=== PATIENT | female | born 1965 | race Caucasian/White ===

== ENCOUNTER 2016-06-18 11:04 | Emergency (ER) | payer OTHER ==
[~2016-06-18] VITALS: Ht 167.6 cm; Wt 65.8 kg
[~2016-06-18 11:04] MED LIST: ALPR0.2583 PO; BUPR100T13 PO; DULO60CA41 PO
[2016-06-18 11:19] VITALS: BP_SYST 142
--- NOTE | 2016-06-18 11:19 | NUR ---
Placed in room 01 . Placed on latent print examiner, blood pressure machine and pulse oximeter. To gown for exam. Side rails up. Report given to Cynthia.
--- NOTE | 2016-06-18 11:22 | NUR ---
ER at bedside examining patient.
--- NOTE | 2016-06-18 11:25 | NUR ---
PT STATES THAT SHE HAS "EPISODES" WHERE SHE GETS CHILLS AND BECOMES DISORIENTED. PT IS ALERT AND ORIENTED X3.
[2016-06-18 11:40] LABS: BASOPHILS # (AUTO) 0.1 K/uL (0.0-0.2); EOSINOPHILS # (AUTO) 0.1 K/uL (0.0-0.4); EOSINOPHILS % (AUTO) 1.1 % (0.0-4.0); HEMATOCRIT 31.9 % (36-48); HEMOGLOBIN 9.7 g/dL (12.0-16.0); LYMPHOCYTES % (AUTO) 25.5 % (20.5-51.5); MEAN CORPUSCULAR HEMOGLOBIN 25 pg (27-31); MEAN CORPUSCULAR HGB CONC 30 % (32-36); MEAN CORPUSCULAR VOLUME 83 fL (79.0-98.0); MONOCYTES # (AUTO) 0.6 K/uL (0.0-1.0); NEUTROPHILS # (AUTO) 5.1 K/uL (1.8-7.7); NEUTROPHILS % (AUTO) 65.4 % (40.0-70.0); PLATELET COUNT (AUTO) 323 K/uL (130-430); RED BLOOD CELL COUNT(AUTO) 3.82 MIL/uL (4.2-6.2); RED CELL DISTRIBUTION WIDTH 18.4 % (9.0-15.0); WHITE BLOOD COUNT (AUTO) 7.9 K/uL (4.8-10.8)
[2016-06-18 11:48] LABS: CALCIUM 8.6 mg/dL (8.4-11.0); CREATININE 0.89 mg/dL (0.55-1.30); POTASSIUM 3.8 mmol/L (3.5-5.1)
[2016-06-18 11:52] LABS: ALBUMIN 3.6 g/dL (3.4-4.8); PROTHROMBIN TIME 10.8 SECS (9.5-12.5); TOTAL BILIRUBIN 0.2 mg/dL (0.0-1.0); TOTAL PROTEIN, SERUM 6.8 g/dL (6.4-8.3)
--- NOTE | 2016-06-18 12:40 | NUR ---
Pt moved to Room 3
[2016-06-18 13:15] VITALS: BP_SYST 131
--- NOTE | 2016-06-18 13:15 | NUR ---
Patient given written and verbal discharge instructions and verbalizes understanding. ER MD DR. MCDONALD discussed with patient the results and treatment provided. Patient in stable condition. ID arm band removed. NO Rx given. Patient educated on pain management and to follow up with PMD. Pain Scale 0/10 Opportunity for questions provided and answered.
[2016-06-18 13:40] LABS: BARBITURATE, URINE NEGATIVE (NEG <=200); BENZODIAZEPINE, URINE NEGATIVE (NEG <=150); CANNABINOID, URINE NEGATIVE (NEG <=50); COCAINE, URINE NEGATIVE (NEG <=150); METHAMPHETAMINES SCREEN,URINE NEGATIVE (NEG <=500); OPIATE, URINE NEGATIVE (NEG <=100); PHENCYCLIDINE SCREEN,URINE NEGATIVE (NEG <=25); UR TRICYCLIC ANTIDEPRESSANTS NEGATIVE (NEG <=300); URINE AMPHETAMINE NEGATIVE (NEG <=500); URINE METHADONE NEGATIVE (NEG <=200); URINE OXYCODONE SCREEN NEGATIVE (NEG <=100); URINE PROPOXYPHENE SCREEN NEGATIVE (NEG <=300)
== END 2016-06-18 13:15 | disposition home or self-care (01) ==
LOC: SED 11:04
DX: G40.409 Other generalized epilepsy and epileptic syndromes, not intractable, without status epilepticus (principal)
CPT/HCPCS: 36415; 70450-TC; 71010; 80053; 80307; 82550-TC; 83880; 84484; 84703; 85025; 85610-TC; 85730-TC; 93005; 99285

== ENCOUNTER 2016-10-27 12:15 | Day surgery (SDC) | payer OTHER ==
[~2016-10-27] VITALS: Ht 162.6 cm; Wt 59.0 kg
[2016-10-27] MEDS ORDERED: POLYMYXIN 500,000/BACIT.10,000 UNITS in NS IRR 1 L IR ONE (15:17)
[2016-10-27] MEDS ORDERED: LR 1,000 ML IV SCH (15:20)
[2016-10-27] MEDS ORDERED: HYDROmorphone 1 MG INJ. 1 MG/ML AMPUL IVP PRN (15:30)
[2016-10-27] MEDS ORDERED: HYDROmorphone 2 MG/ML VIAL IVP PRN ×2 (15:30)
[2016-10-27] MEDS ORDERED: MEPERIDINE HCL/PF 25 MG/ML DISP.SYRIN IVP PRN (15:30)
[2016-10-27] MEDS ORDERED: D5LR 1,000 ML IV SCH (18:11)
[2016-10-27] MEDS ORDERED: ACETAMINOPHEN 325 MG TABLET PO PRN (18:15)
[2016-10-27] MEDS ORDERED: MORPHINE 2 MG/ML INJ. SYRINGE IVP PRN (18:15)
[2016-10-27] MEDS ORDERED: HYDROcodone/ACETAMIN 5-325 MG TAB (NORCO/ VICODIN) PO PRN (18:15)
[2016-10-27] MEDS ORDERED: DIPHENHYDRAMINE HCL 25 MG CAPSULE PO PRN (18:15)
[2016-10-27 18:27] VITALS: BP_SYST 126
[2016-10-27] MEDS ORDERED: MEPERIDINE HCL/PF 25 MG/ML DISP.SYRIN ONE (18:28)
--- NOTE | 2016-10-27 18:45 | NUR ---
OBSERVATION PATIENT BROUGHT FROM PACU. PATIENT BEING BROUGHT TO ROOM 123 FOR OBSERVATION OVERNIGHT. VITALS STARTED AND REPORT WILL BE GIVEN TO NIGHT NURSE.
--- NOTE | 2016-10-27 19:48 | NUR ---
OPENING NOTES/ OBSERVATION PATIENT IS A/OX4. NO SIGNS OF DISTRESS. BREATHING IS NON LABORED. VITAL SIGNS ARE STABLE. T=98.2 PF=054/79, HR=82 O2=96% RM, RR=16 P=2. PATIENT STATED THAT HER BOYFRIEND IS COMING TO PICK HER UP. WILL CONTINUE TO MONITOR.
--- NOTE | 2016-10-27 20:10 | NUR ---
PATIENT OFF THE UNIT PATIENT IS A/OX4. NO SIGNS OF DISTRESS. BREATHING IS NON LABORED. VITAL SIGNS ARE STABLE. DRESSING TO THE RIGHT SHOULDER IS CLEAN, DRY, AND INTACT. PATIENT WAS GIVEN DISCHARGE INSTRUCTIONS PER MD ORDERED. PATIENT AND PATIENT BOYFRIEND WERE EDUCATED ON MD DISCHARGE INSTRUCTIONS. PATIENT VERBALIZED UNDERSTANDING. ELISEO GUARDADO WHEELED PATIENT OUT TO PRIVATE AUTOMOBILE. ALL BELONGING STENT HOME WITH PATIENT.
== END 2016-10-27 20:10 | disposition home or self-care (01) ==
LOC: SMU 12:15 → SDS 12:15
PROVIDERS: ATTEND Orthopaedic Surgery
DX: M24.411 Recurrent dislocation, right shoulder (principal); Z88.0 Allergy status to penicillin; F32.9 Major depressive disorder, single episode, unspecified; Z79.899 Other long term (current) drug therapy; M79.7 Fibromyalgia; Z87.891 Personal history of nicotine dependence; Z90.49 Acquired absence of other specified parts of digestive tract
CPT/HCPCS: 23470; 76000; C1713; J2175; J7120; L8699

== ENCOUNTER 2016-12-22 10:03 | Inpatient (IN) | payer OTHER ==
[~2016-12-22] VITALS: Ht 162.6 cm; Wt 61.2 kg
[2016-12-22] MEDS ORDERED: POLYMYXIN 500,000/BACIT.10,000 UNITS in NS IRR 1 L IR ONE (11:52)
[2016-12-22] MEDS ORDERED: PROPOFOL 200MG/ 20ML VIAL (DIPRIVAN) IV ONE (12:25)
[2016-12-22] MEDS ORDERED: MIDAZOLAM HCL 5 MG/5 ML VIAL IVP ONE (12:25)
[2016-12-22] MEDS ORDERED: NS IRRIG SOLN 1000 ML IR ONE (12:25)
[2016-12-22] MEDS ORDERED: CLINDAMYCIN PHOSPHATE 900 mg/50mL D5W IV ONE (12:25)
[2016-12-22] MEDS ORDERED: ROCURONIUM BROMIDE 10 MG/ML (ZEMURON) IV ONE (12:25)
[2016-12-22] MEDS ORDERED: NORMAL SALINE 10 ML VIAL IVP ONE (12:25)
[2016-12-22] MEDS ORDERED: SEVOFLURANE 15 MIN GAS INH ONE (12:25)
[2016-12-22] MEDS ORDERED: VANCOMYCIN HCL 1000 MG/VIAL IV ONE (12:25)
[2016-12-22] MEDS ORDERED: ONDANSETRON HCL 4 MG/2 ML VIAL IVP ONE (12:25)
[2016-12-22] MEDS ORDERED: fentaNYL CITRATE/PF 100 MCG/2 ML AMP IVP ONE (12:25)
[2016-12-22] MEDS ORDERED: LR 1,000 ML IV SCH (13:44)
[2016-12-22] MEDS ORDERED: HYDROmorphone 1 MG INJ. 1 MG/ML AMPUL IVP PRN ×2 (13:45)
[2016-12-22] MEDS ORDERED: METOCLOPRAMIDE HCL 10 MG/2 ML VIAL IVP PRN (13:45)
[2016-12-22] MEDS ORDERED: HYDROmorphone 2 MG/ML VIAL IVP PRN (13:45)
[2016-12-22] MEDS ORDERED: DIPHENHYDRAMINE HCL 25 MG CAPSULE PO PRN (14:15)
[2016-12-22] MEDS ORDERED: VANCOMYCIN HCL 1 GM/NS PREMIX 250 ML IV ONE (14:15)
[2016-12-22] MEDS: D5LR 1,000 ML IV SCH (14:15)
[2016-12-22] MEDS ORDERED: ACETAMINOPHEN 325 MG TABLET PO PRN (14:15)
[2016-12-22] MEDS ORDERED: HYDROmorphone 1 MG INJ. 1 MG/ML AMPUL ONE ×2 (14:28→15:05)
[2016-12-22] MEDS: HYDROmorphone 1 MG INJ. 1 MG/ML AMPUL IM PRN ×2 (14:50→20:34)
[2016-12-22 15:46] VITALS: BP_SYST 147
[2016-12-22] MEDS ORDERED: FLU VACC QS 2017-18(36MOS+)/PF 0.5 ML/SYR SYRINGE I.M. PRN (16:00)
[2016-12-22 16:45] VITALS: BP_SYST 130
[2016-12-22] MEDS: HYDROcodone/ACETAMIN 5-325 MG TAB (NORCO/ VICODIN) PO PRN ×2 (18:16→22:54)
[2016-12-22 19:10] LABS: CALCIUM 9.1 mg/dL (8.4-11.0); CREATININE 0.67 mg/dL (0.55-1.30); POTASSIUM 4.4 mmol/L (3.5-5.1)
[2016-12-22 19:15] LABS: TOTAL BILIRUBIN 0.4 mg/dL (0.0-1.0)
[2016-12-22 20:00] VITALS: BP_SYST 140
[2016-12-22] MEDS: DOXYCYCLINE HYCLATE 100 MG CAPSULE PO SCH (20:24)
[2016-12-23] VITALS (7 sets, daily range): BP systolic 129–158
[2016-12-23] MEDS: VANCOMYCIN HCL 1,000 MG in NS 250 ML IV SCH ×2 (02:01→17:17)
[2016-12-23] MEDS: D5LR 1,000 ML IV SCH ×2 (02:02→20:15)
[2016-12-23] MEDS: HYDROmorphone 1 MG INJ. 1 MG/ML AMPUL IM PRN ×4 (02:02→21:56)
[2016-12-23] MEDS: HYDROcodone/ACETAMIN 5-325 MG TAB (NORCO/ VICODIN) PO PRN ×3 (05:12→17:17)
[2016-12-23] MEDS: DOXYCYCLINE HYCLATE 100 MG CAPSULE PO SCH (10:23)
[2016-12-23 11:16] LABS: BASOPHILS % (AUTO) 0.3 % (0.0-2.0); EOSINOPHILS # (AUTO) 0.1 K/uL (0.0-0.4); EOSINOPHILS % (AUTO) 0.9 % (0.0-4.0); HEMATOCRIT 37.3 % (36-48); HEMOGLOBIN 12.2 g/dL (12.0-16.0); LYMPHOCYTES % (AUTO) 15.1 % (20.5-51.5); MEAN CORPUSCULAR HEMOGLOBIN 31 pg (27-31); MEAN CORPUSCULAR HGB CONC 33 % (32-36); MEAN CORPUSCULAR VOLUME 94 fL (79.0-98.0); MONOCYTES # (AUTO) 0.5 K/uL (0.0-1.0); MONOCYTES % (AUTO) 7.2 % (1.7-9.3); NEUTROPHILS # (AUTO) 4.9 K/uL (1.8-7.7); NEUTROPHILS % (AUTO) 76.5 % (40.0-70.0); PLATELET COUNT (AUTO) 322 K/uL (130-430); RED BLOOD CELL COUNT(AUTO) 3.97 MIL/uL (4.2-6.2); RED CELL DISTRIBUTION WIDTH 12.7 % (9.0-15.0); WHITE BLOOD COUNT (AUTO) 6.5 K/uL (4.8-10.8)
[2016-12-23 11:33] LABS: PROTHROMBIN TIME 9.8 SECS (9.5-12.5)
[2016-12-23] MEDS: LORazepam 2 MG/ML VIAL IVP PRN ×2 (17:18→21:54)
[2016-12-23] MEDS ORDERED: CEFAZOLIN 1 GM IVPB PREMIX 50 ML IV ONE ×2 (20:12→22:18)
[2016-12-23] MEDS: ceFAZolin SODIUM 1 GM in D5W 50 ML IV SCH (20:20)
[2016-12-23] MEDS ORDERED: COMMUNICATION ORDER XX ONE (21:00)
[2016-12-23] MEDS ORDERED: INSULIN ASPART 100 UNITS/ML, 10 ML VIAL (NovoLOG) SUBCUT PRN (21:00)
[2016-12-23] MEDS ORDERED: MAG-AL HYDROX/SIMETH 30 ML UDC PO PRN (22:15)
[2016-12-24 00:45] VITALS: BP_SYST 138
[2016-12-24] MEDS: LORazepam 2 MG/ML VIAL IVP PRN ×2 (03:46→11:27)
[2016-12-24] MEDS: HYDROmorphone 1 MG INJ. 1 MG/ML AMPUL IM PRN ×3 (03:47→11:28)
[2016-12-24 04:45] VITALS: BP_SYST 127
[2016-12-24] MEDS: D5LR 1,000 ML IV SCH (05:16)
[2016-12-24] MEDS: ceFAZolin SODIUM 1 GM in D5W 50 ML IV SCH ×2 (05:16→12:43)
[2016-12-24 08:17] VITALS: BP_SYST 136
[2016-12-24 10:46] VITALS: BP_SYST 137
[2016-12-24 11:00] VITALS: BP_SYST 182
[2016-12-24 11:43] LABS: CALCIUM 9.3 mg/dL (8.4-11.0); CHLORIDE 101 mmol/L (98-107); CREATININE 0.54 mg/dL (0.55-1.30); GLUCOSE 101 mg/dL (70-99); SODIUM SERUM 133 mmol/L (136-145); UREA NITROGEN, BLOOD 6 mg/dL (8-21)
[2016-12-24 11:47] LABS: ANION GAP < 3 (5-15); GFR AFRICAN AMERICAN 152 mL/min (>90)
[2016-12-24 11:48] LABS: ALANINE AMINOTRANSFERASE 225 U/L (12-78); ASPARTATE AMINOTRANSFERASE 165 U/L (10-37); BILIRUBIN,DIRECT 0.1 mg/dL (0.0-0.3); TOTAL BILIRUBIN 0.3 mg/dL (0.0-1.0)
[2016-12-24] MEDS ORDERED: HEPARIN IV FLUSH 300 UNITS/3ML SYR INJ ONE (12:00)
[2016-12-24] MEDS ORDERED: HEPARIN IV FLUSH 300 UNITS/3ML SYR ONE (12:04)
[2016-12-24] MEDS ORDERED: LORazepam 2 MG/ML VIAL IM ONE (12:15)
[2016-12-24] MEDS ORDERED: LORazepam 2 MG/ML VIAL ONE (12:22)
[2016-12-24 13:20] VITALS: BP_SYST 137
== END 2016-12-24 13:36 | disposition home health service (06) | DRG 857 ==
LOC: SDS 10:03 → SMU 10:04 → SDS 12-23 11:12
PROVIDERS: ADMIT Internal Medicine Hospice and Palliative Medicine; ATTEND Internal Medicine Hospice and Palliative Medicine
PROC: 0JBD0ZZ Excision of Right Upper Arm Subcutaneous Tissue and Fascia, Open Approach (ICD-10-PCS; 2016-12-22)
PROC: 0J9D0ZZ Drainage of Right Upper Arm Subcutaneous Tissue and Fascia, Open Approach (ICD-10-PCS; 2016-12-22)
PROC: 0RP Upper Joints, Removal (ICD-10-PCS; principal; 2016-12-22 12:00)
PROC: 02HV33Z Insertion of Infusion Device into Superior Vena Cava, Percutaneous Approach (ICD-10-PCS; 2016-12-23)
PROC: B548ZZA Ultrasonography of Superior Vena Cava, Guidance (ICD-10-PCS; 2016-12-23)
DX: T81.4XXA Infection following a procedure, initial encounter (principal); M86.8X1 Other osteomyelitis, shoulder; K70.10 Alcoholic hepatitis without ascites; Y83.1 Surgical operation with implant of artificial internal device as the cause of abnormal reaction of the patient, or of later complication, without mention of misadventure at the time of the procedure; R94.5 Abnormal results of liver function studies; R74.0 Nonspecific elevation of levels of transaminase and lactic acid dehydrogenase [LDH]; B95.61 Methicillin susceptible Staphylococcus aureus infection as the cause of diseases classified elsewhere; F10.10 Alcohol abuse, uncomplicated; F17.200 Nicotine dependence, unspecified, uncomplicated; Z79.899 Other long term (current) drug therapy; Y92.89 Other specified places as the place of occurrence of the external cause; Z88.0 Allergy status to penicillin; Z91.14 Patient's other noncompliance with medication regimen
CPT/HCPCS: 36415; 71010; 80053; 82248-TC; 85025; 85610-TC; 85730-TC; 87070-TC; 87075-TC; 87081; 87101; 87116; 87186-TC; 94010; C1751; J0690; J1170; J1642; J2060; J2250; J2405; J2704; J3010; J3370; J3490; J7050; J7060; J7120; Q2037

== ENCOUNTER 2017-03-22 21:09 | Emergency (ER) | payer OTHER ==
[~2017-03-22] VITALS: Ht 152.4 cm; Wt 49.0 kg
[2017-03-22 21:20] VITALS: BP_SYST 123
--- NOTE | 2017-03-22 21:20 | NUR ---
Patient to ER bed 5 to gown for evaluation. Side rails up. Report given to Tim EDGAR.
--- NOTE | 2017-03-22 21:30 | NUR ---
Patient brought to ED via BLS a/o x 4 for ETOH intoxication. Per family, patient drank an unknown amount of whisky. Patient proceeded to call Ex-, which prompted emotional outburst. Patient appears acutely anxious. Hx of psychiatric disorders. Vital signs within normal limits. Denies SI/HI. Son at bedside. Will continue to monitor
--- NOTE | 2017-03-22 21:44 | NUR ---
ED MD Ferguson at bedside for medical evaluation.
[2017-03-22] MEDS ORDERED: ONDANSETRON 4 MG ODT TAB PO ONE (22:15)
[2017-03-22 22:20] VITALS: BP_SYST 121
--- NOTE | 2017-03-22 22:20 | NUR ---
Patient given written and verbal discharge instructions and verbalizes understanding. ER MD discussed with patient the results and treatment provided. Patient in stable condition. ID arm band removed. Rx of zofran given. Patient educated on pain management and to follow up with PMD. Pain Scale 0/10. Opportunity for questions provided and answered.
== END 2017-03-22 22:20 | disposition home or self-care (01) ==
LOC: SED 21:09
DX: F10.129 Alcohol abuse with intoxication, unspecified (principal); R11.0 Nausea; Z88.0 Allergy status to penicillin; Z90.49 Acquired absence of other specified parts of digestive tract; Z98.84 Bariatric surgery status
CPT/HCPCS: 99283; Q0162